=== PATIENT | female | born 1970 | race Asian ===

== ENCOUNTER 2022-09-10 06:45 | Day surgery (SDC) | payer OTHER ==
[~2022-09-10] VITALS: Ht 162.6 cm; Wt 72.3 kg
[~2022-09-10 06:45] MED LIST: AIRDUO DIGIHAL1 EACH IH; ALLEGRA ALLERGY60 MG PO; CLARITIN10 M2 PO; IBU800 MG PO; KEFLEX500 MG PO; MULTI VITAMIN1 EACH PO; NASACORT10.8 ML NAS; SUDOGEST60 MG PO; VITAMIN D350 MC3 PO
--- NOTE | 2022-09-10 09:19 | NUR ---
09/10/22 0919 Renu Lopez 0915 PATIENT ARRIVES TO PACU RESTING WITH EYES CLOSED. RESP EVEN AND UNLABORED, NC AT 2 LITERS TURNED OFF. SATS 100%. PASSING GAS.
--- NOTE | 2022-09-10 10:09 | OR ---
[facility] [address] [place], [place] [address] Signed DATE OF OPERATION: 09/10/2022 SURGEON: Nidia Manning MD PREOPERATIVE DIAGNOSIS: Screening. POSTOPERATIVE DIAGNOSIS: Unremarkable colonoscopy. PROCEDURE: Colonoscopy without biopsy. ESTIMATED BLOOD LOSS: None. INDICATIONS: Ori is a 51-year-old lady from the [facility] who was asked to see me in my office for her initial screening colonoscopy. She came with her . They both speak Serbian well. She has no lower GI complaints. No family history of colon cancer or polyps. Her told me I helped him several years ago with his colonoscopy. I gave them our brochure on colonoscopy. They understand the nature of the test. There is risk including, but not limited to gas bloating, crampy abdominal pain, bleeding, perforation requiring surgery, and missed diagnosis. We also reviewed the written instructions for the bowel prep line by line. She also understands the need for IV conscious sedation. They had expressed understanding and wished to proceed. PROCEDURE NOTE: Ori was taken into our endoscopy suite and placed in the left lateral decubitus position. She was given 5 mg of Versed and 125 mcg of fentanyl to cover the case. A digital rectal exam was performed and this was unremarkable. She had good sphincter tone. No external hemorrhoids. No masses. The adult colonoscope was inserted and advanced quite readily up to the hepatic flexure. It took three tries to get around the hepatic flexure and into the cecum itself. She became bradycardic twice, but with a little extra sedation settled down and she was able to tolerate passing the scope around hepatic flexure. Her prep was quite excellent. The scope was then slowly withdrawn. We took pictures throughout for photodocumentation. There were no polyps. There were no diverticula. Once in the rectum, the scope was retroflexed and there was no additional pathology noted above the anal canal. After this, the gas was suctioned out and the colonoscope removed. Ori tolerated the procedure quite well. Electronically Signed By: NIDIA MANNING MD 09/10/22 1009 PATIENT NAME: ORI FORTUNE OPERATIVE REPORT DATE OF : 70 REPORT #: [id number] PHYSICIAN: NIDIA MANNING MD PCP: RADHA MENJIVAR REPORT IS CONFIDENTIAL AND NOT TO BE RELEASED WITHOUT AUTHORIZATION [address] [address] Signed RECOMMENDATIONS: Ori can return in 10 years for repeat colonoscopy. Nidia Manning MD ALB/SOLAL /[id number] cc: MD Radha Hicks PA Copies: NIDIA MANNING MD, LINDA PA ~ Electronically Signed By: NIDIA MANNING MD 09/10/22 1009 PATIENT NAME: ORI FORTUNE OPERATIVE REPORT DATE OF : 70 REPORT #: [id number] PHYSICIAN: NIDIA MANNING MD PCP: RADHA MENJIVAR REPORT IS CONFIDENTIAL AND NOT TO BE RELEASED WITHOUT AUTHORIZATION
== END 2022-09-10 10:00 | disposition home or self-care (01) ==
LOC: DS 06:45
PROVIDERS: ATTEND Colon & Rectal Surgery
PROC: 0DJD8ZZ Inspection of Lower Intestinal Tract, Via Natural or Artificial Opening Endoscopic (ICD-10-PCS; principal; 2022-09-10 09:00)
DX: Z12.11 Encounter for screening for malignant neoplasm of colon (principal); M17.12 Unilateral primary osteoarthritis, left knee; A15.9 Respiratory tuberculosis unspecified; J32.9 Chronic sinusitis, unspecified
CPT/HCPCS: G0121; 99153; G0500; J2250; J3010; J7121

== ENCOUNTER 2024-04-17 14:19 | Emergency (ER) | payer OTHER ==
[~2024-04-17] VITALS: Ht 165.1 cm; Wt 76.4 kg
[2024-04-17 14:44] LABS: BASOPHILS 1.3 % (0-2); EOSINOPHILS 3.3 % (0-6); HEMATOCRIT 41.7 % (35.0-50.0); HEMOGLOBIN 14.2 g/dL (12.0-18.0); LYMPHOCYTES 38.7 % (24-44); MCH 30.1 (27-36); MCV 88.6 fl (81-99); MONOCYTES 8.7 % (0-12); PLATELET COUNT 222 K/uL (140-440); RBC 4.71 M/ul (4.3-5.7); RDW 13.8 (10.5-15.0)
[2024-04-17] MEDS ORDERED: NITROGLYCERIN 0.4 MG SUBL SL PRN (14:45)
[2024-04-17] MEDS ORDERED: ACETAMINOPHEN 500 MG TAB PO ONE (14:45)
[2024-04-17] MEDS ORDERED: ASPIRIN 81 MG CHEW PO ONE (14:45)
[2024-04-17 14:56] LABS: INR 0.92 (0.80-1.30); PARTIAL THROMBOPLASTIN TIME 29.9 Sec (22.9-41.3); PROTIME 11.7 Sec (11.2-14.2)
[2024-04-17 15:01] LABS: ALBUMIN 3.9 g/dL (3.4-5.0); ALBUMIN/GLOBULIN RATIO 1.11 (1.1-2.4); ANION GAP 13.7 (7-21); BILIRUBIN, TOTAL 0.3 ng/dL (0.2-1.0); BUN/CREATININE RATIO 24.67 (6.0-28.6); CALCIUM 9.6 mg/dL (8.5-10.1); CREATININE, SERUM 0.77 mg/dL (0.55-1.02); MAGNESIUM 2.1 mg/dL (1.8-2.4); POTASSIUM 3.7 mmol/L (3.5-5.1); PROTEIN, TOTAL 7.4 g/dL (6.4-8.2)
[2024-04-17 16:50] VITALS: BP 142/90
--- NOTE | 2024-04-17 21:38 | EKG ---
[facility] [place] [facility] [address] [facility] [place] [address] Signed Normal sinus rhythm Possible Left atrial enlargement Rightward axis Borderline ECG No previous ECGs available Confirmed by Anne Vazquez MD () on 04/17/2024 9:37:53 PM Electronically Signed By: ANNE VAZQUEZ MD 04/17/24 2138 PATIENT NAME: ORI FORTUNE Electrocardiogram DATE OF : 70 PHYSICIAN: ANNE VAZQUEZ MD REPORT #: [id number] REPORT IS CONFIDENTIAL AND NOT TO BE RELEASED WITHOUT AUTHORIZATION
== END 2024-04-17 16:50 | disposition home or self-care (01) ==
LOC: ED 14:19
PROVIDERS: Emergency Medicine
DX: R07.89 Other chest pain (principal); Z91.011 Allergy to milk products; Z79.899 Other long term (current) drug therapy
CPT/HCPCS: 36415; 71045; 80053; 83735; 83880; 84484; 85025; 85610; 85730; 93005; 93010; 99285-25; A9270